=== PATIENT | male | born 1950 | race Caucasian/White ===

== ENCOUNTER 2017-08-11 06:34 | Inpatient (IN) | payer MEDICAID, OTHER, SELFPAY ==
[~2017-08-11] VITALS: Ht 182.9 cm; Wt 86.1 kg
[2017-08-11 07:08] LABS: MICROSCOPIC INDICATED
[2017-08-11 07:18] LABS: BASOPHILS # (AUTO) 0.04 x10^3/uL (0-0.1); BASOPHILS % (AUTO) 0 % (0-1); EOSINOPHILS # (AUTO) 0.08 x10^3/uL (0-0.4); EOSINOPHILS % (AUTO) 1 % (1-7); LYMPHOCYTES # (AUTO) 1.07 x10^3/uL (1-3.4); LYMPHOCYTES % (AUTO) 10 % (22-44); MD NO; MEAN CORPUSCULAR HEMOGLOBIN 30.4 pg (27.5-34.5); MEAN CORPUSCULAR HGB CONC 34.3 g/dL (33.2-36.2); MEAN CORPUSCULAR VOLUME 88.7 fL (81-97); MEAN PLATELET VOLUME 9.6 fL (7.4-10.4); MONOCYTES # (AUTO) 1.28 x10^3/uL (0.2-0.8); MONOCYTES % (AUTO) 12 % (2-9); NEUTROPHILS # (AUTO) 8.56 x10^3/uL (1.8-6.8); NEUTROPHILS % (AUTO) 78 % (42-75); PLATELET COUNT 219 x10^3/uL (130-400); RED BLOOD COUNT 5.03 x10^6/uL (4.38-5.82); RED CELL DISTRIBUTION WIDTH 13.4 % (9.4-14.8)
[2017-08-11 07:23] LABS: CULTURE INDICATED? YES
[2017-08-11 07:29] LABS: ALBUMIN 3.9 g/dL (3.4-5.0); ANION GAP 15 mmol/L (5-15); CALCIUM 9.5 mg/dL (8.5-10.1); CHLORIDE 101 mmol/L (98-107)
[2017-08-11 07:33] LABS: ALANINE AMINOTRANSFERASE 103 U/L (12-78); ALKALINE PHOSPHATASE 60 U/L (45-117); BILIRUBIN,TOTAL 0.9 mg/dL (0.2-1.0); CREATININE 6.15 mg/dL (0.7-1.3); TOTAL PROTEIN 8.3 g/dL (6.4-8.2)
[2017-08-11] MEDS ORDERED: CEFTRIAXONE PMX 1GM/50ML 50 ML ONE (07:58)
[2017-08-11] MEDS ORDERED: CEFTRIAXONE PMX 1GM/50ML 50 ML IV ONE (08:00)
[2017-08-11] MEDS ORDERED: LABETALOL 5MG/ML, 20ML IVPush PRN (08:30)
[2017-08-11] MEDS ORDERED: TAMSULOSIN 0.4 MG CAP.ER.24H PO ONE (08:30)
[2017-08-11] MEDS ORDERED: GUAIFENESIN/DM 200-20MG, 10ML UDC PO PRN (08:30)
[2017-08-11] MEDS ORDERED: ONDANSETRON 2MG/ML, 2ML IVPush PRN (08:30)
[2017-08-11] MEDS ORDERED: POLYETHYLENE GLYCOL 17 GM PACKET PO PRN (08:30)
[2017-08-11] MEDS ORDERED: ONDANSETRON ODT 4 MG PO PRN (08:30)
[2017-08-11] MEDS ORDERED: SENNA/DOCUSATE TABLET ONE (09:46)
[2017-08-11] MEDS ORDERED: TAMSULOSIN 0.4 MG CAP.ER.24H ONE (09:46)
[2017-08-11] MEDS ORDERED: HEPARIN 5,000 UNITS/ML, 1ML ONE (09:46)
[2017-08-11] MEDS ORDERED: HYDROcodone/APAP 5/325 TABLET ONE (09:46)
[2017-08-11] MEDS: SENNA/DOCUSATE TABLET PO SCH (09:49)
[2017-08-11] MEDS: HEPARIN 5,000 UNITS/ML, 1ML SQ SCH ×2 (09:50→16:52)
[2017-08-11] MEDS: SODIUM CHLORIDE 0.9% 1,000 ML IV SCH (09:56)
[2017-08-11 11:42] VITALS: BP 155/79
[2017-08-11] MEDS: morphine SULFATE 10 MG/ML, 1ML IVPush PRN ×2 (12:13→15:13)
[2017-08-11] MEDS ORDERED: MORPHINE SULFATE 4 MG/ML, 1ML ONE (15:09)
[2017-08-11 15:16] VITALS: BP 121/71
[2017-08-11 18:34] VITALS: BP 95/53
[2017-08-11] MEDS: HYDROcodone/APAP 5/325 TABLET PO PRN ×2 (18:46→18:50)
[2017-08-11] MEDS: MAGNESIUM HYDROXIDE 8%, 30ML UDC PO SCH (20:02)
[2017-08-12 00:46] VITALS: BP 134/70
[2017-08-12] MEDS: HYDROcodone/APAP 5/325 TABLET PO PRN ×3 (01:13→22:12)
[2017-08-12] MEDS: HEPARIN 5,000 UNITS/ML, 1ML SQ SCH ×3 (01:13→16:30)
[2017-08-12] MEDS: SODIUM CHLORIDE 0.9% 1,000 ML IV SCH (01:14)
[2017-08-12 06:32] VITALS: BP 112/66
[2017-08-12 07:32] LABS: BASOPHILS # (AUTO) 0.07 x10^3/uL (0-0.1); BASOPHILS % (AUTO) 1 % (0-1); EOSINOPHILS # (AUTO) 0.18 x10^3/uL (0-0.4); EOSINOPHILS % (AUTO) 2 % (1-7); LYMPHOCYTES # (AUTO) 1.67 x10^3/uL (1-3.4); LYMPHOCYTES % (AUTO) 21 % (22-44); MD SCAN; MEAN CORPUSCULAR HEMOGLOBIN 30.4 pg (27.5-34.5); MEAN CORPUSCULAR HGB CONC 34.4 g/dL (33.2-36.2); MEAN CORPUSCULAR VOLUME 88.6 fL (81-97); MEAN PLATELET VOLUME 9.7 fL (7.4-10.4); MONOCYTES # (AUTO) 0.99 x10^3/uL (0.2-0.8); MONOCYTES % (AUTO) 12 % (2-9); NEUTROPHILS # (AUTO) 5.25 x10^3/uL (1.8-6.8); NEUTROPHILS % (AUTO) 64 % (42-75); PLATELET COUNT 230 x10^3/uL (130-400); RED BLOOD COUNT 4.56 x10^6/uL (4.38-5.82); RED CELL DISTRIBUTION WIDTH 13.6 % (9.4-14.8)
[2017-08-12 07:39] LABS: ALANINE AMINOTRANSFERASE 87 U/L (12-78); ALBUMIN 3.2 g/dL (3.4-5.0); ANION GAP 8 mmol/L (5-15); CALCIUM 8.9 mg/dL (8.5-10.1); CHLORIDE 110 mmol/L (98-107); CREATININE 4.02 mg/dL (0.7-1.3)
[2017-08-12 07:42] LABS: ALKALINE PHOSPHATASE 49 U/L (45-117); BILIRUBIN,TOTAL 0.5 mg/dL (0.2-1.0); TOTAL PROTEIN 7.2 g/dL (6.4-8.2)
[2017-08-12] MEDS: morphine SULFATE 10 MG/ML, 1ML IVPush PRN ×4 (08:52→19:53)
[2017-08-12] MEDS: SENNA/DOCUSATE TABLET PO SCH (08:52)
[2017-08-12] MEDS: SODIUM CHLORIDE 0.45% 1,000 ML IV SCH ×2 (12:16→23:02)
[2017-08-12 12:19] VITALS: BP 128/73
[2017-08-12 15:31] LABS: HEMOGLOBIN A1C 6.2 % (4.2-6.3)
[2017-08-12] MEDS: PHENAZOPYRIDINE 100 MG TABLET PO PRN (19:35)
[2017-08-12 19:45] VITALS: BP 130/62
[2017-08-12] MEDS: MAGNESIUM HYDROXIDE 8%, 30ML UDC PO SCH (19:46)
[2017-08-13] MEDS: HEPARIN 5,000 UNITS/ML, 1ML SQ SCH ×3 (00:51→17:02)
[2017-08-13] MEDS: HYDROcodone/APAP 5/325 TABLET PO PRN ×2 (02:14→22:26)
[2017-08-13 02:21] VITALS: BP 133/71
[2017-08-13] MEDS: morphine SULFATE 10 MG/ML, 1ML IVPush PRN ×4 (06:05→15:17)
[2017-08-13] MEDS: SODIUM CHLORIDE 0.45% 1,000 ML IV SCH ×3 (06:09→22:30)
[2017-08-13 06:26] VITALS: BP 139/95
[2017-08-13 06:41] LABS: BASOPHILS # (AUTO) 0.15 x10^3/uL (0-0.1); BASOPHILS % (AUTO) 2 % (0-1); EOSINOPHILS % (AUTO) 4 % (1-7); LYMPHOCYTES # (AUTO) 2.02 x10^3/uL (1-3.4); LYMPHOCYTES % (AUTO) 26 % (22-44); MD NO; MEAN CORPUSCULAR HEMOGLOBIN 30.5 pg (27.5-34.5); MEAN CORPUSCULAR HGB CONC 34.1 g/dL (33.2-36.2); MEAN CORPUSCULAR VOLUME 89.5 fL (81-97); MEAN PLATELET VOLUME 9.4 fL (7.4-10.4); MONOCYTES # (AUTO) 0.92 x10^3/uL (0.2-0.8); MONOCYTES % (AUTO) 12 % (2-9); NEUTROPHILS # (AUTO) 4.44 x10^3/uL (1.8-6.8); NEUTROPHILS % (AUTO) 57 % (42-75); PLATELET COUNT 233 x10^3/uL (130-400); RED BLOOD COUNT 4.73 x10^6/uL (4.38-5.82)
[2017-08-13 06:51] LABS: ALBUMIN 3.2 g/dL (3.4-5.0); ANION GAP 4 mmol/L (5-15); CALCIUM 9.2 mg/dL (8.5-10.1); CHLORIDE 110 mmol/L (98-107); CREATININE 1.91 mg/dL (0.7-1.3)
[2017-08-13] MEDS: PHENAZOPYRIDINE 100 MG TABLET PO PRN (09:13)
[2017-08-13] MEDS: SENNA/DOCUSATE TABLET PO SCH (09:13)
[2017-08-13 12:19] VITALS: BP 137/73
[2017-08-13 14:36] LABS: ALBUMIN 3.3 g/dL (3.4-5.0); ANION GAP 6 mmol/L (5-15); CALCIUM 8.8 mg/dL (8.5-10.1); CHLORIDE 108 mmol/L (98-107); CREATININE 1.59 mg/dL (0.7-1.3)
[2017-08-13 19:18] VITALS: BP 143/76
[2017-08-13] MEDS: MAGNESIUM HYDROXIDE 8%, 30ML UDC PO SCH (19:42)
[2017-08-13] MEDS: ZOLPIDEM 5MG TABLET PO PRN (19:42)
[2017-08-14] MEDS: HEPARIN 5,000 UNITS/ML, 1ML SQ SCH ×3 (01:01→17:26)
[2017-08-14 01:07] VITALS: BP 153/83
[2017-08-14] MEDS: morphine SULFATE 10 MG/ML, 1ML IVPush PRN ×3 (03:53→11:24)
[2017-08-14] MEDS: SODIUM CHLORIDE 0.45% 1,000 ML IV SCH ×3 (04:48→17:22)
[2017-08-14 05:21] LABS: BASOPHILS % (AUTO) 1 % (0-1); EOSINOPHILS # (AUTO) 0.24 x10^3/uL (0-0.4); EOSINOPHILS % (AUTO) 3 % (1-7); LYMPHOCYTES # (AUTO) 1.46 x10^3/uL (1-3.4); LYMPHOCYTES % (AUTO) 18 % (22-44); MD NO; MEAN CORPUSCULAR HEMOGLOBIN 30.5 pg (27.5-34.5); MEAN CORPUSCULAR HGB CONC 34.3 g/dL (33.2-36.2); MEAN PLATELET VOLUME 9.6 fL (7.4-10.4); MONOCYTES # (AUTO) 0.71 x10^3/uL (0.2-0.8); MONOCYTES % (AUTO) 9 % (2-9); NEUTROPHILS # (AUTO) 5.75 x10^3/uL (1.8-6.8); NEUTROPHILS % (AUTO) 70 % (42-75); PLATELET COUNT 252 x10^3/uL (130-400); RED BLOOD COUNT 4.73 x10^6/uL (4.38-5.82); RED CELL DISTRIBUTION WIDTH 13.7 % (9.4-14.8)
[2017-08-14 05:33] LABS: ALBUMIN 3.1 g/dL (3.4-5.0); ANION GAP 7 mmol/L (5-15); CALCIUM 9.2 mg/dL (8.5-10.1); CHLORIDE 108 mmol/L (98-107)
[2017-08-14 05:37] LABS: ALANINE AMINOTRANSFERASE 59 U/L (12-78); ALKALINE PHOSPHATASE 48 U/L (45-117); BILIRUBIN,TOTAL 0.5 mg/dL (0.2-1.0); CREATININE 1.15 mg/dL (0.7-1.3); TOTAL PROTEIN 7.5 g/dL (6.4-8.2)
[2017-08-14 07:10] VITALS: BP 151/81
[2017-08-14] MEDS: PHENAZOPYRIDINE 100 MG TABLET PO PRN ×2 (07:31→17:22)
[2017-08-14] MEDS: SENNA/DOCUSATE TABLET PO SCH (07:32)
[2017-08-14] MEDS ORDERED: SODIUM CHLORIDE 0.45% 1,000 ML IV SCH (08:00)
[2017-08-14 13:28] VITALS: BP 135/77
[2017-08-14] MEDS: OXYBUTYNIN CHLORIDE 5 MG TABLET PO PRN (17:22)
[2017-08-14] MEDS: HYDROcodone/APAP 5/325 TABLET PO PRN (17:22)
[2017-08-14 18:09] VITALS: BP 159/70
[2017-08-14] MEDS: ZOLPIDEM 5MG TABLET PO PRN (19:36)
[2017-08-14] MEDS: MAGNESIUM HYDROXIDE 8%, 30ML UDC PO SCH (19:36)
[2017-08-15] MEDS: SODIUM CHLORIDE 0.45% 1,000 ML IV SCH ×3 (00:31→14:34)
[2017-08-15] MEDS: HYDROcodone/APAP 5/325 TABLET PO PRN ×2 (00:36→04:33)
[2017-08-15] MEDS: HEPARIN 5,000 UNITS/ML, 1ML SQ SCH ×3 (00:43→17:00)
[2017-08-15 01:55] VITALS: BP 150/77
[2017-08-15 04:52] LABS: BASOPHILS # (AUTO) 0.11 x10^3/uL (0-0.1); BASOPHILS % (AUTO) 1 % (0-1); EOSINOPHILS # (AUTO) 0.35 x10^3/uL (0-0.4); EOSINOPHILS % (AUTO) 4 % (1-7); LYMPHOCYTES # (AUTO) 1.84 x10^3/uL (1-3.4); LYMPHOCYTES % (AUTO) 20 % (22-44); MD NO; MEAN CORPUSCULAR HEMOGLOBIN 30.3 pg (27.5-34.5); MEAN CORPUSCULAR HGB CONC 33.6 g/dL (33.2-36.2); MEAN CORPUSCULAR VOLUME 90.1 fL (81-97); MEAN PLATELET VOLUME 9.6 fL (7.4-10.4); MONOCYTES # (AUTO) 0.78 x10^3/uL (0.2-0.8); MONOCYTES % (AUTO) 9 % (2-9); NEUTROPHILS # (AUTO) 6.07 x10^3/uL (1.8-6.8); NEUTROPHILS % (AUTO) 66 % (42-75); PLATELET COUNT 289 x10^3/uL (130-400); RED BLOOD COUNT 5.03 x10^6/uL (4.38-5.82); RED CELL DISTRIBUTION WIDTH 13.6 % (9.4-14.8)
[2017-08-15 05:04] LABS: ANION GAP 5 mmol/L (5-15); CALCIUM 9.1 mg/dL (8.5-10.1); CHLORIDE 105 mmol/L (98-107)
[2017-08-15 05:07] LABS: CREATININE 1.09 mg/dL (0.7-1.3)
[2017-08-15 06:33] VITALS: BP 135/64
[2017-08-15] MEDS ORDERED: OXYB5TAB7 PO (07:41)
[2017-08-15] MEDS ORDERED: PHEN-582 PO (07:41)
[2017-08-15] MEDS ORDERED: ACET650S21 PO (07:42)
[2017-08-15] MEDS: SENNA/DOCUSATE TABLET PO SCH (09:00)
[2017-08-15 12:28] VITALS: BP 135/76
[2017-08-15] MEDS: PHENAZOPYRIDINE 100 MG TABLET PO PRN (12:44)
[2017-08-15 13:32] LABS: RAPID INFLUENZA A Negative (Negative); RAPID INFLUENZA B Negative (Negative)
[2017-08-15] MEDS ORDERED: HYDROcodone/APAP 5/325 TABLET ONE (14:30)
[2017-08-15] MEDS: OXYBUTYNIN CHLORIDE 5 MG TABLET PO PRN (14:32)
[2017-08-15] MEDS ORDERED: HYDROcodone/APAP 5/325 TABLET PO PRN (16:30)
== END 2017-08-15 17:50 | disposition home or self-care (01) | DRG 683 ==
LOC: ED 07:13 → EDIP 07:43 → 3NW 10:55
PROVIDERS: ADMIT Emergency Medicine; ATTEND Hospitalist
DX: N17.9 Acute kidney failure, unspecified (principal); E87.1 Hypo-osmolality and hyponatremia; E87.5 Hyperkalemia; E78.5 Hyperlipidemia, unspecified; E11.9 Type 2 diabetes mellitus without complications; D72.829 Elevated white blood cell count, unspecified; N40.1 Benign prostatic hyperplasia with lower urinary tract symptoms; I10 Essential (primary) hypertension; K59.00 Constipation, unspecified; Z88.8 Allergy status to other drugs, medicaments and biological substances; R33.8 Other retention of urine; Z79.84 Long term (current) use of oral hypoglycemic drugs
CPT/HCPCS: 36415; 51702; 74022; 76770; 80048; 80053; 81001; 82040; 83036; 83735; 84100; 84153; 85025; 87086; 87400; 96365; 96366; J0696; J1644; J2270; J7030

== ENCOUNTER 2017-10-02 20:10 | Emergency (ER) | payer SELFPAY ==
[~2017-10-02] VITALS: Ht 180.3 cm; Wt 107.5 kg
[~2017-10-02 20:10] MED LIST: ACET650S21 PO; OXYB5TAB7 PO; PHEN-582 PO
[2017-10-02] MEDS ORDERED: SODIUM CHLORIDE 0.9% 1,000ML IVBOLUS ONE (21:00)
[2017-10-02] MEDS ORDERED: MORPHINE SULFATE 4 MG/ML, 1ML IVPush PRN (21:00)
[2017-10-02] MEDS ORDERED: SODIUM CHLORIDE FLUSH 10ML SYR IVF ONE (21:00)
[2017-10-02] MEDS ORDERED: ONDANSETRON 2MG/ML, 2ML IVPush ONE (21:00)
[2017-10-02 21:14] LABS: BASOPHILS # (AUTO) 0.04 x10^3/uL (0-0.1); BASOPHILS % (AUTO) 0 % (0-1); EOSINOPHILS # (AUTO) 0.22 x10^3/uL (0-0.4); EOSINOPHILS % (AUTO) 2 % (1-7); LYMPHOCYTES # (AUTO) 1.94 x10^3/uL (1-3.4); LYMPHOCYTES % (AUTO) 18 % (22-44); MD NO; MEAN CORPUSCULAR HEMOGLOBIN 30.4 pg (27.5-34.5); MEAN CORPUSCULAR HGB CONC 34.5 g/dL (33.2-36.2); MEAN CORPUSCULAR VOLUME 88.1 fL (81-97); MEAN PLATELET VOLUME 9.3 fL (7.4-10.4); MONOCYTES # (AUTO) 0.94 x10^3/uL (0.2-0.8); MONOCYTES % (AUTO) 9 % (2-9); NEUTROPHILS % (AUTO) 71 % (42-75); PLATELET COUNT 296 x10^3/uL (130-400); RED BLOOD COUNT 4.72 x10^6/uL (4.38-5.82); RED CELL DISTRIBUTION WIDTH 12.3 % (9.4-14.8)
[2017-10-02 21:26] LABS: ALANINE AMINOTRANSFERASE 82 U/L (12-78); ALBUMIN 3.5 g/dL (3.4-5.0); ANION GAP 6 mmol/L (5-15); CALCIUM 8.7 mg/dL (8.5-10.1); CHLORIDE 104 mmol/L (98-107); CREATININE 1.37 mg/dL (0.7-1.3)
[2017-10-02 21:28] LABS: ALKALINE PHOSPHATASE 79 U/L (45-117); BILIRUBIN,TOTAL 0.7 mg/dL (0.2-1.0); TOTAL PROTEIN 7.9 g/dL (6.4-8.2)
[2017-10-02] MEDS ORDERED: MORPHINE SULFATE 4 MG/ML, 1ML ONE (21:54)
[2017-10-02] MEDS ORDERED: ONDANSETRON 2MG/ML, 2ML ONE (21:54)
[2017-10-02 23:02] LABS: CULTURE INDICATED? YES; MICROSCOPIC INDICATED
[2017-10-02] MEDS ORDERED: CEFTRIAXONE PMX 1GM/50ML 50 ML IV ONE (23:30)
[2017-10-02] MEDS ORDERED: CEFTRIAXONE PMX 1GM/50ML 50 ML ONE (23:32)
[2017-10-02 23:47] VITALS: BP 183/108
[2017-10-02] MEDS ORDERED: SILO8CAP PO (23:49)
[2017-10-02] MEDS ORDERED: TAMS0.4C2 PO (23:50)
== END 2017-10-03 00:25 | disposition home or self-care (01) ==
LOC: ED 23:26
DX: T83.091A Other mechanical complication of indwelling urethral catheter, initial encounter (principal); N30.01 Acute cystitis with hematuria; I10 Essential (primary) hypertension; X58.XXXA Exposure to other specified factors, initial encounter; Y93.89 Activity, other specified; Y92.89 Other specified places as the place of occurrence of the external cause; Y99.8 Other external cause status
CPT/HCPCS: 36415; 76770; 80053; 81001; 83605; 84145; 85025; 87040; 87077; 87086; 87186; 93005; 96361; 96365; 96375; 99285; J0696; J2405; J7030

== ENCOUNTER 2017-10-08 23:59 | Emergency (ER) | payer SELFPAY ==
[~2017-10-08] VITALS: Ht 182.9 cm; Wt 105.9 kg
[~2017-10-08 23:59] MED LIST changes: +SILO8CAP PO; +TAMS0.4C2 PO
[2017-10-09] MEDS ORDERED: DICYCLOMINE 20 MG TABLET PO ONE (01:00)
[2017-10-09] MEDS ORDERED: DICYCLOMINE 20 MG TABLET ONE (01:12)
[2017-10-09 01:16] LABS: MICROSCOPIC INDICATED
[2017-10-09 01:32] LABS: CULTURE INDICATED? YES
[2017-10-09] MEDS ORDERED: ZIPRASIDONE 20 MG INJ IM ONE ×2 (02:30→02:32)
[2017-10-09 03:08] VITALS: BP 138/80
== END 2017-10-09 03:41 | disposition home or self-care (01) ==
LOC: ED 10-09 00:46
DX: N30.21 Other chronic cystitis with hematuria (principal); N32.89 Other specified disorders of bladder; I10 Essential (primary) hypertension
CPT/HCPCS: 81001; 87077; 87086; 93005; 96372; 99285; J3486